=== PATIENT | female | born 1955 | race Caucasian/White ===

== ENCOUNTER 2017-10-06 10:49 | Emergency (ER) | payer OTHER ==
[~2017-10-06] VITALS: Ht 157.5 cm; Wt 80.3 kg
[2017-10-06] MEDS ORDERED: SEROQUEL25 MG (11:01)
[2017-10-06] MEDS ORDERED: KEPPRA500 MG (11:01)
[2017-10-06] MEDS ORDERED: KEPPRA1000 MG (11:01)
[2017-10-06] MEDS ORDERED: AMITRIPTYLINE H25 MG (11:02)
[2017-10-06] MEDS ORDERED: FLUOXETINE HCL40 MG (11:02)
[2017-10-06] MEDS ORDERED: LAMOTRIGINE100 MG (11:02)
[2017-10-06] MEDS ORDERED: MYSOLINE250 MG (11:02)
== END 2017-10-06 14:20 | disposition home or self-care (01) ==
LOC: ER 10:49
DX: S30.0XXA Contusion of lower back and pelvis, initial encounter (principal); S70.02XA Contusion of left hip, initial encounter; S70.01XA Contusion of right hip, initial encounter; W01.198A Fall on same level from slipping, tripping and stumbling with subsequent striking against other object, initial encounter; Y93.E8 Activity, other personal hygiene; Y92.012 Bathroom of single-family (private) house as the place of occurrence of the external cause; Y99.8 Other external cause status

== ENCOUNTER 2018-11-30 13:04 | Emergency (ER) | payer OTHER ==
[~2018-11-30] VITALS: Ht 154.9 cm; Wt 74.8 kg
[~2018-11-30 13:04] MED LIST: AMITRIPTYLINE H25 MG; FLUOXETINE HCL40 MG; KEPPRA1000 MG; KEPPRA500 MG; LAMOTRIGINE100 MG; MYSOLINE250 MG; SEROQUEL25 MG
[2018-11-30] MEDS ORDERED: MUCINEX100 MG (13:37)
[2018-11-30] MEDS ORDERED: PROZAC40 MG (13:38)
[2018-11-30] MEDS ORDERED: RESTORIL30 M1 (13:40)
== END 2018-11-30 18:05 | disposition home or self-care (01) ==
LOC: ER 13:04
DX: J11.1 Influenza due to unidentified influenza virus with other respiratory manifestations (principal)

== ENCOUNTER 2024-08-18 10:52 | Emergency (ER) | payer OTHER ==
[~2024-08-18] VITALS: Ht 157.5 cm; Wt 72.6 kg
[~2024-08-18 10:52] MED LIST changes: +MUCINEX100 MG; +PROZAC40 MG; +RESTORIL30 M1
[2024-08-18] MEDS ORDERED: ORPHENADRINE CITRATE 30 MG/ML AMPUL IM ONE (13:00)
[2024-08-18] MEDS ORDERED: KETOROLAC TROMETHAMINE 30 MG VIAL IM ONE (13:00)
[2024-08-18] MEDS ORDERED: CELEBREX100 MG PO (16:23)
== END 2024-08-18 17:28 | disposition home or self-care (01) ==
LOC: ER 10:54
DX: S39.82XA Other specified injuries of lower back, initial encounter (principal); W19.XXXA Unspecified fall, initial encounter; Y93.89 Activity, other specified; Y92.098 Other place in other non-institutional residence as the place of occurrence of the external cause; Y99.8 Other external cause status
CPT/HCPCS: 72040; 72070; 72100; 73110; 96372; 99283; J1885; J2360